=== PATIENT | male | born 1985 | race Two or more races ===

== ENCOUNTER 2024-01-17 04:35 | Emergency (ER) | payer MEDICAID, SELFPAY ==
[2024-01-17 04:43] VITALS: BP 131/86; PULSE 89; RESP 18; TEMP 36.9; O2SAT 99
[2024-01-17 05:07] VITALS: BMI 34.4
--- NOTE | 2024-01-17 05:14 | PC.NURSE ---
Dr. Brush at the bedside evaluating patient.
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
--- NOTE | 2024-01-17 05:33 | XR_ITS ---
Examination: AP chest single view Technique: AP portable upright chest single view Exam date and time: January 17, 2024 0535 hrs. Comparison December 04, 2009 Indications: Shortness of breath today. Findings: Normal heart size No pneumonia or pulmonary edema The osseous structures are intact Impression: No pneumonia or pulmonary edema
[2024-01-17 06:10] LABS: Lactate (Lactic Acid) 0.8 mMol/L (0.4-2.0)
[2024-01-17] MEDS: CEFEPIME INJ 2 GM in SODIUM CHLORIDE 0.9% (P) 50 ML IV (06:12)
[2024-01-17 06:27] LABS: Basophils % (Auto) 0 % (0-2.5); Eosinophils % (Auto) 0 % (0-10); Hematocrit 34.7 % (41.0-53.0); Hemoglobin 11.9 g/dL (13.5-16.0); Immature Granulocytes % (Auto) 0 % (0-0); Immature Granulocytes Auto 0.04 Thou/mm3 (0.00-0.00); Lymphocytes # (Auto) 1.1 Thou/mm3 (1.0-4.8); Lymphocytes % (Auto) 12 % (10-50); Mean Corpuscular HGB Conc 34.3 g/dl (31.0-37.0); Mean Corpuscular Hemoglobin 29.8 pg (25.0-35.0); Mean Corpuscular Volume 87 fL (80-100); Monocytes # (Auto) 0.8 Thou/mm3 (0.0-0.8); Monocytes % (Auto) 9 % (0-12); Neutrophils # (Auto) 7.1 Thou/mm3 (1.8-7.7); Neutrophils % (Auto) 78 % (37-80); Nucleated Red Blood Cell % 0 /100 WBC (0); Platelet Count 361 Thou/mm3 (140-440); RDW Standard Deviation 41.4 fL (35.1-43.9); Red Blood Count 3.99 Miln/mm3 (4.50-5.90); White Blood Count 9.1 Thou/mm3 (3.8-10.6)
[2024-01-17] MEDS: Vancomycin Inj 2,000 MG in SODIUM CHLORIDE 0.9% 500 ML 500 ML 150 MG IV (06:45)
[2024-01-17 06:48] VITALS: BP 140/88; PULSE 101; RESP 18; O2SAT 99
[2024-01-17 06:54] LABS: Anion Gap 7 (7-16); BUN/Creatinine Ratio 15 Ratio (12-20); Bilirubin,Total 0.6 mg/dL (0.3-1.2); Blood Urea Nitrogen 15 mg/dL (9-23); Chloride 106 mMol/L (98-107); Estimated Creatinine Clearance 127.5 mL/min (>60); Glucose 112 mg/dL (74-106); Magnesium 2.3 mg/dL (1.6-2.6); Osmolality,Calculated 277 (275-295); Potassium 3.6 mMol/L (3.4-5.1); Sodium 138 mMol/L (136-145); eGFR > 60 See Note
[2024-01-17 06:55] LABS: Alanine Aminotransferase 26 U/L (10-49); Albumin, Serum 4.3 gm/dL (3.5-5.0); Albumin/Globulin Ratio 1.6 (1.2-2.2); Alcohol, Blood Medical < 3.0 mg/dL (0-10.0); Alkaline Phosphatase 81 U/L (46-116); Aspartate Amino Transferase 20 U/L (0-34); C-Reactive Protein 1.4 mg/dL (0.0-0.9); Globulin 2.7 gm/dL (2.3-3.5); Procalcitonin 0.22 ng/ml (0.0-0.49)
[2024-01-17 07:07] LABS: Sed Rate (ESR) 20 mm/hr (0-15)
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
[2024-01-17 08:14] VITALS: BP 123/86; PULSE 104; RESP 16; O2SAT 95
--- NOTE | 2024-01-17 08:26 | PC.NURSE ---
PATIENT PROVIDED URINE, NO COMPLAINTS OF PAIN AT TIME OF ASSESSMENT. PATIENT TRANSPORTED TO CT. PPD REMAINS WITH PATIENT.
[2024-01-17 08:48] LABS: Collection Type, Urine Clean Catch
[2024-01-17 09:08] LABS: Amphetamine/Methamp Scrn,U Positive (Negative); Barbiturate Screen,Urine Negative (Negative); Benzodiazepines Screen,Urine Negative (Negative); Benzoylecgonine Screen, Ur Negative (Negative); Fentanyl Screen,Urine Negative (Negative); Opiate Screen,Urine Negative (Negative); THC Screen,Urine Negative (Negative)
[2024-01-17 09:19] LABS: Bilirubin,Urine Negative (Negative); Blood,Urine Negative (Negative); Clarity,Urine Clear (Clear/Hazy); Color,Urine Lt-Yellow (Lt Yel-Yel); Glucose, Urine Negative (Negative); Ketones,Urine Negative (Negative); Leukocyte Esterase,Urine Negative (Negative); Nitrite,Urine Negative (Negative); Protein,Urine Negative (Neg - Trace); RBC,Urine 2 /hpf (0-3); Specific Gravity,Urine 1.022 (1.001-1.035); Squamous Epithelial Cell,Urine < 1 /hpf (0-5); Urobilinogen,Urine Negative mg/dL (0.0-1.0); WBC,Urine 1 /hpf (0-5)
[2024-01-17 10:35] VITALS: BP 143/89; PULSE 103; RESP 16; O2SAT 98
[2024-01-17 11:17] VITALS: BP 143/89; PULSE 108; RESP 16; O2SAT 98
== END 2024-01-17 10:45 ==
PROVIDERS: Emergency Medicine; Emergency Provider Emergency Medicine; PCP Family Medicine
DX: Z02.89 Encounter for other administrative examinations (principal); S71.112A Laceration without foreign body, left thigh, initial encounter; R06.02 Shortness of breath; X58.XXXA Exposure to other specified factors, initial encounter
CPT/HCPCS: 36415; 71045; 73701; 80053; 80307; 80320; 81001; 83605; 83735; 84145; 85025; 85652; 86140; 87040; 96365; 96366; 96367; 99285; A4649; J0692; J3371; J7040; J7050; Q9967; G0480; J3370

== ENCOUNTER 2025-01-11 19:01 | Emergency (ER) | payer MEDICAID, SELFPAY ==
[2025-01-11 19:21] VITALS: BP 124/77; PULSE 112; RESP 20; TEMP 37.1; O2SAT 98
--- NOTE | 2025-01-11 19:26 | XR_ITS ---
Examination: Duplex scan of the lower extremity, unilateral right Date and time of exam: January 11, 2025, 195 hours INDICATIONS: Right leg redness swelling and pain beginning 2 days ago Technique: Duplex scan of the extremity veins using B-mode/grayscale imaging and Doppler spectral analysis and color flow Attention is directed to internal echogenicity, compression and augmentation involving these veins, color flow assessment, spectral analysis Findings: Major deep venous structures in the extremity demonstrate normal course and caliber. There is no evidence of deep vein thrombosis. Normal color flow and spectral analysis Impression: Negative for DVT Multiple right groin lymph nodes, the largest 4.5 cm, clinical correlation advised.
--- NOTE | 2025-01-11 19:27 | PD.EDRME ---
Rapid Medical Screening Exam RME Arrival date/time: 01/11/25 19:01 39M with history of R hip replacement presents to ED with several days of RLE redness, swelling, and pain. Chief Complaint: General Adult/Misc Complain Vital signs: Vital Signs Temperature 98.8 F 01/11/25 19:21 Pulse Rate 112 H 01/11/25 19:21 Respiratory Rate 20 01/11/25 19:21 Blood Pressure 124/77 01/11/25 19:21 Pulse Oximetry (%) 98 01/11/25 19:21 Oxygen Delivery Method Room Air 01/11/25 19:21 Exam: R lower leg redness, swelling, and tenderness (per patient). Some swelling and redness also on R upper thigh area. Clinical Impression: cellulitis vs DVT vs skin abscess vs PVD/PAD
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
[2025-01-11] MEDS: IBUPROFEN TAB 400 MG TABLET 800 MG PO (19:58)
[2025-01-11 20:02] LABS: Lactate (Lactic Acid) 1.6 mMol/L (0.4-2.0)
[2025-01-11 20:03] LABS: Basophils # (Auto) 0.0 Thou/mm3 (0.0-0.2); Basophils % (Auto) 0 % (0-2.5); Eosinophils # (Auto) 0.0 Thou/mm3 (0.0-0.5); Eosinophils % (Auto) 0 % (0-10); Hematocrit 44.0 % (41.0-53.0); Hemoglobin 14.6 g/dL (13.5-16.0); Immature Granulocytes Auto 0.04 Thou/mm3 (0.00-0.00); Lymphocytes # (Auto) 1.1 Thou/mm3 (1.0-4.8); Lymphocytes % (Auto) 12 % (10-50); Mean Corpuscular HGB Conc 33.2 g/dl (31.0-37.0); Mean Corpuscular Hemoglobin 28.6 pg (25.0-35.0); Mean Corpuscular Volume 86 fL (80-100); Monocytes # (Auto) 0.7 Thou/mm3 (0.0-0.8); Monocytes % (Auto) 7 % (0-12); Neutrophils # (Auto) 7.2 Thou/mm3 (1.8-7.7); Neutrophils % (Auto) 80 % (37-80); Nucleated Red Blood Cell # 0.00 Thou/mm3 (0.00-0.00); Nucleated Red Blood Cell % 0 /100 WBC (0); Platelet Count 200 Thou/mm3 (140-440); RDW Standard Deviation 39.2 fL (35.1-43.9); Red Blood Count 5.10 Miln/mm3 (4.50-5.90); White Blood Count 9.0 Thou/mm3 (3.8-10.6)
[2025-01-11 20:10] LABS: Sed Rate (ESR) 71 mm/hr (0-15)
[2025-01-11 20:30] LABS: Alanine Aminotransferase 131 U/L (10-49); Albumin, Serum 4.8 gm/dL (3.5-5.0); Albumin/Globulin Ratio 1.7 (1.2-2.2); Alkaline Phosphatase 77 U/L (46-116); Anion Gap 9 (7-16); Aspartate Amino Transferase 56 U/L (0-34); BUN/Creatinine Ratio 11 Ratio (12-20); Bilirubin,Total 0.5 mg/dL (0.3-1.2); Blood Urea Nitrogen 14 mg/dL (9-23); Calcium 9.3 mg/dL (8.3-10.6); Calcium (Corrected) 9.3 mg/dL (8.5-10.1); Carbon Dioxide 29.3 mMol/L (20.0-31.0); Chloride 100 mMol/L (98-107); Creatinine (Component) 1.3 mg/dL (0.6-1.3); Globulin 2.9 gm/dL (2.3-3.5); Glucose 97 mg/dL (74-106); Osmolality,Calculated 276 (275-295); Potassium 3.8 mMol/L (3.4-5.1); Procalcitonin 4.93 ng/ml (0.0-0.49); Sodium 138 mMol/L (136-145); Total Protein 7.7 gm/dL (5.7-8.2); eGFR > 60 See Note
[2025-01-11 20:37] LABS: C-Reactive Protein 18.7 mg/dL (0.0-0.9)
== END 2025-01-11 21:00 | disposition left against medical advice (07) ==
LOC: SERX 20:15
PROVIDERS: Physician Assistant; Emergency Provider Emergency Medicine
DX: L03.113 Cellulitis of right upper limb (principal)
CPT/HCPCS: 36415; 80053; 83605; 84145; 85025; 85652; 86140; 93971; 96372; 99283; J0696; J3490; A9270

== ENCOUNTER 2025-01-16 13:17 | Emergency (ER) | payer MEDICAID, SELFPAY ==
[2025-01-16 13:35] VITALS: BP 128/83; PULSE 100; RESP 18; TEMP 36.6; O2SAT 98; BMI 32.1
--- NOTE | 2025-01-16 13:36 | XR_ITS ---
EXAMINATION: XR foot comp RT min 3V ORDERING PROVIDER: SARITA Hollis HISTORY: r/o osteo TECHNIQUE: 3 radiographs of the right foot were obtained. COMPARISON: None. FINDINGS: Significant soft tissue swelling involving the ankle and foot. No subcutaneous edema. Hammertoe deformities of the second through fourth toes. No destructive bony process identified. No acute fracture or dislocation. Mild degenerative changes. No radiopaque foreign object. IMPRESSION: Significant soft tissue swelling without acute bony findings. If further concern for osteomyelitis recommend bone scan versus MRI.
--- NOTE | 2025-01-16 13:36 | XR_ITS ---
EXAMINATION: XR tibia fibula RT 2V ORDERING PROVIDER: SARITA Hollis HISTORY: r/o osteo TECHNIQUE: 4 radiographs of the right tib-fib. COMPARISON: None. FINDINGS: Significant soft tissue swelling. No acute fracture or dislocation. No destructive bony lesion. 3 metallic subcentimeter round densities project over the medial portion of the knee. IMPRESSION: Soft tissue swelling without acute bony findings. If further clinical concern for radiographically occult osteomyelitis consider bone scan versus MRI. 3 metallic rounded densities projecting over the medial knee. These could be internal or external to the patient. Recommend correlation with history and physical exam.
--- NOTE | 2025-01-16 13:38 | EDRME_ITS ---
Rapid Medical Screening Exam RME Arrival date/time: 01/16/25 13:17 39-year-old male with no known medical history presents to the emergency room with a chief complaint of right lower extremity swelling, erythema, tenderness x 5 days I have greeted and performed a focused initial assessment of this patient. A com prehensive ED assessment and evaluation of the patient, analysis of all test results, and completion of the medical decision making process will be conducted by additional ED providers. Chief Complaint: Extremity Injury, Lower Time Seen by Provider: 01/16/25 13:19 Vital signs: Vital Signs Temperature 98 F 01/16/25 13:35 Pulse Rate 100 01/16/25 13:35 Respiratory Rate 18 01/16/25 13:35 Blood Pressure 128/83 01/16/25 13:35 Pulse Oximetry (%) 98 01/16/25 13:35 Oxygen Delivery Method Room Air 01/16/25 13:35 Vital signs reviewed by provider: Yes Exam: Right below the knee swelling, erythema, tenderness. The patient has +2 pitting edema Patient has clear bilateral lung sounds. Strong and regular rhythm no chest pain Clinical Impression: Cellulitis versus diabetic foot ulcer versus osteomyelitis
[2025-01-16 14:06] LABS: Lactate (Lactic Acid) 0.9 mMol/L (0.4-2.0)
[2025-01-16 14:08] LABS: Basophils # (Auto) 0.1 Thou/mm3 (0.0-0.2); Basophils % (Auto) 1 % (0-2.5); Eosinophils # (Auto) 0.1 Thou/mm3 (0.0-0.5); Eosinophils % (Auto) 1 % (0-10); Hematocrit 38.6 % (41.0-53.0); Hemoglobin 12.9 g/dL (13.5-16.0); Immature Granulocytes Auto 0.14 Thou/mm3 (0.00-0.00); Lymphocytes # (Auto) 1.9 Thou/mm3 (1.0-4.8); Lymphocytes % (Auto) 24 % (10-50); Mean Corpuscular HGB Conc 33.4 g/dl (31.0-37.0); Mean Corpuscular Hemoglobin 29.1 pg (25.0-35.0); Mean Corpuscular Volume 87 fL (80-100); Monocytes # (Auto) 0.8 Thou/mm3 (0.0-0.8); Monocytes % (Auto) 10 % (0-12); Neutrophils # (Auto) 4.8 Thou/mm3 (1.8-7.7); Neutrophils % (Auto) 62 % (37-80); Nucleated Red Blood Cell # 0.00 Thou/mm3 (0.00-0.00); Nucleated Red Blood Cell % 0 /100 WBC (0); Platelet Count 338 Thou/mm3 (140-440); RDW Standard Deviation 39.6 fL (35.1-43.9); Red Blood Count 4.44 Miln/mm3 (4.50-5.90); White Blood Count 7.7 Thou/mm3 (3.8-10.6)
[2025-01-16 14:27] LABS: B-Type Natriuretic Peptide < 20 pg/mL (0-100)
[2025-01-16 14:28] LABS: Sed Rate (ESR) 54 mm/hr (0-15)
[2025-01-16 14:30] LABS: Alanine Aminotransferase 58 U/L (10-49); Albumin, Serum 4.4 gm/dL (3.5-5.0); Albumin/Globulin Ratio 1.3 (1.2-2.2); Alkaline Phosphatase 81 U/L (46-116); Anion Gap 9 (7-16); Aspartate Amino Transferase 26 U/L (0-34); BUN/Creatinine Ratio 10 Ratio (12-20); Bilirubin,Total 0.4 mg/dL (0.3-1.2); Blood Urea Nitrogen 10 mg/dL (9-23); C-Reactive Protein 9.4 mg/dL (0.0-0.9); Calcium 9.0 mg/dL (8.3-10.6); Calcium (Corrected) 9.0 mg/dL (8.5-10.1); Carbon Dioxide 29.4 mMol/L (20.0-31.0); Chloride 102 mMol/L (98-107); Creatinine (Component) 1.0 mg/dL (0.6-1.3); Estimated Creatinine Clearance 121.9 mL/min (>60); Globulin 3.4 gm/dL (2.3-3.5); Glucose 102 mg/dL (74-106); Osmolality,Calculated 278 (275-295); Potassium 3.6 mMol/L (3.4-5.1); Sodium 140 mMol/L (136-145); Total Protein 7.8 gm/dL (5.7-8.2); Troponin I < 0.002 ng/mL (0.0-0.045); eGFR > 60 See Note
[2025-01-16 14:36] LABS: Procalcitonin 0.36 ng/ml (0.0-0.49)
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
--- NOTE | 2025-01-16 16:27 | XR_ITS ---
Examination: Duplex scan of the lower extremity, unilateral right Date and time of exam: January 16, 2025, 1641 hours INDICATIONS: Right leg swelling and redness beginning 6 days ago Technique: Duplex scan of the extremity veins using B-mode/grayscale imaging and Doppler spectral analysis and color flow Attention is directed to internal echogenicity, compression and augmentation involving these veins, color flow assessment, spectral analysis Findings: Major deep venous structures in the extremity demonstrate normal course and caliber. There is no evidence of deep vein thrombosis. Normal color flow and spectral analysis Impression: Negative for DVT..
--- NOTE | 2025-01-16 17:23 | PC.NURSE ---
pt not in assigned room, called inside and outside ED lobby, no response at this time
--- NOTE | 2025-01-16 17:38 | PC.NURSE ---
pt not in assigned room, pt called inside and outside ED lobby; no response at this time
--- NOTE | 2025-01-16 17:55 | PC.NURSE ---
nax3 at this time.
--- NOTE | 2025-01-16 17:58 | PC.NURSE ---
attempt to call pt and unable to contacted.
--- NOTE | 2025-01-16 18:12 | EVENTNT_ITS ---
<Statement entered by Sanjay Sanchez MD - 01/16/25 18:14> ED called for admission, for Mr. Grant who is 39 year old male with past medical Hx significant for substance use disorder pressented to the ED due to right lower extremity edema and erythema. Pt left without being seeing by the hospitalist team. Dr. Sanchez (PGY-2)- Internal medicine resident Documentation for date of: 01/16/25
--- NOTE | 2025-01-16 18:12 | PD.RESEVENT ---
Documentation for date of: 01/16/25
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
== END 2025-01-16 18:08 | disposition left against medical advice (07) ==
PROVIDERS: Nurse Practitioner Family; Emergency Provider Emergency Medicine; PCP Family Medicine
DX: L03.115 Cellulitis of right lower limb (principal); Z53.29 Procedure and treatment not carried out because of patient's decision for other reasons
CPT/HCPCS: 36415; 73590; 73630; 80053; 81001; 83605; 83880; 84145; 84484; 85025; 85652; 86140; 87040; 87086; 93971; 99283

== ENCOUNTER 2025-01-16 18:49 | Emergency (ER) | payer MEDICAID, SELFPAY ==
[2025-01-16 19:11] VITALS: BP 148/90; PULSE 104; RESP 18; TEMP 36.6; O2SAT 97
[2025-01-16 19:21] VITALS: BMI 32.1
--- NOTE | 2025-01-16 19:22 | PD.EDRME ---
Rapid Medical Screening Exam RME Arrival date/time: 01/16/25 18:49 39-year-old male with a history of substance abuse was seen earlier for right lower leg cellulitis patient AMA but is returning for admission Chief Complaint: General Adult/Misc Complain Time Seen by Provider: 01/16/25 18:55 Vital signs: Vital Signs Temperature 98 F 01/16/25 19:11 Pulse Rate 104 H 01/16/25 19:11 Respiratory Rate 18 01/16/25 19:11 Blood Pressure 148/90 H 01/16/25 19:11 Pulse Oximetry (%) 97 01/16/25 19:11 Oxygen Delivery Method Room Air 01/16/25 19:11 Exam: ? Clinical Impression: ?
--- NOTE | 2025-01-16 21:25 | EDNOTE_ITS ---
ED General RME/HPI General Chief complaint: General Adult/Misc Complain Stated complaint: RETURNED TO BE ADMITTED FOR RLE REDNESS/SWELLING Time Seen by Provider: 01/16/25 18:55 Arrival date/time: 01/16/25 18:49 CC: Right lower leg redness and tenderness. H patient noticed this approximately 6 days ago, but states when he had the flu , he was out of it for 3 days and woke up with a swollen like this patient admits to methamphetamine use, alcohol, and cigarettes. Patient was initially in admitted to the hospital by the day doctor today, but then left AGAINST MEDICAL ADVICE. Patient freely admits that was to get a fix . Patient says localized pain is 2-3 on a 10 scale nonradiating patient is awake alert oriented nontoxic- appearing afebrile not in any acute distress. Patient denies injecting drugs into that leg RME / HPI RME / HPI narrative: 01/16/25 18:49 39-year-old male with a history of substance abuse was seen earlier for right lower leg cellulitis patient AMA but is returning for admission Exam: ? Impression: ? Related Data Previous Rx's ?Medication ?Instructions ?Recorded clindamycin HCl 300 mg capsule 300 mg PO Q6H #20 caps 01/17/24 sulfamethoxazole 800 1 tab PO BID 7 days #14 tabs 01/16/25 mg-trimethoprim 160 mg tablet (Bactrim DS) Allergies Allergy/AdvReac Type Severity Reaction Status Date / Time No Known Allergies Allergy Verified 01/16/25 18:51 Review of Systems Review of Systems Narrative Review of Systems: GEN: No fever, no chills, no weight loss EYES: No discharge, no visual changes, no pain HEENT: No ear pain, no congestion, no sore throat PULM: No shortness of breath, no cough, no congestion CV: No chest pain, no dyspnea on exertion, no palpitations GI: No nausea, no vomiting, no diarrhea, no pain, no constipation : No frequency, no urgency, no dysuria MUSC/SKEL: No joint pain, no back pain SKIN: Right lower leg redness, no rash PSYCH: No hallucinations, no depression HEME/LYMPH: No easy bleeding or bruising tendencies NEURO: No weakness, no headache Past Medical History Past Medical History NEUROLOGIC: Positive Seizures CARDIAC: Negative Cardiac Disorders or Congestive Heart Failure RESPIRATORY: Negative Chronic Obstructive Pulmonary Disease (COPD) or Asthma GENITOURINARY: Negative Renal Disease ENDOCRINE: Negative Diabetes Mellitus Type 1 or Diabetes Mellitus Type 2 HEMATOLOGIC: Negative Sickle Cell Disease Social History SMOKING STATUS: Current every day smoker ED Exam Narrative Physical exam: [General: Obese not in any acute distress Head normocephalic HEENT: Within acceptable limits Neck is supple nontender Chest equal chest rise nontender to palpation Respiratory: Clear to auscultation no wheezes crackles or rubs CV: Rate rhythm is regular no murmurs rubs or clicks Abdomen is distended secondary to body habitus soft nontender no masses positive bowel sounds all 4 quadrants Back: No CVA tenderness no spinous process tenderness from cervical spine thoracic and lumbar spine Skin: Circumferential erythema to the right lower extremity starting at the ankle that extends up three quarters the way up the lower leg, but does not involve the knee. Small open lesion on the anterior surface along the tibial spine midshaft. No streaking or tenderness in the upper leg posterior fossa of the knee. Otherwise skin is intact no petechiae rash induration ulceration or crepitus Extremities: Edema to the dorsum of the right foot. Moving all extremities against resistance cap refill less than 2 seconds neurosensory intact Neuro: Awake alert oriented x3 Glascow coma 15 no focal deficits] Course Course Course Narrative: Patient admits that he will needing a fix, he had also admits that he if he were admitted he probably would leave AGAINST MEDICAL ADVICE for drugs. At this time I page of the patient option of being admitted, and/or p.o. medications for the next 5 days and then return for reassessment. The patient is elected to do the discharge with p.o. meds. Family member at bedside is encouraged him to take the medications with regularity. I feel this is a practical approach to the patient's street drug needs. At the time the patient returns if it is worsening the patient can be admitted for further workup secondary to outpatient failure. Quality Measures none Orders Category Date Time Status cefTRIAXone [Rocephin] 1,000 mg Med 01/16/25 21:30 Discontinued Lidocaine 1% Pf 5 ml [Xylocaine 1% Pf 5 ml] 2.1 ml IM X1 Vital Signs Vital signs: Vital Signs Temperature 98 F 01/16/25 19:11 Pulse Rate 104 H 01/16/25 19:11 Respiratory Rate 18 01/16/25 19:11 Blood Pressure 148/90 H 01/16/25 19:11 Pulse Oximetry (%) 97 01/16/25 19:11 Oxygen Delivery Method Room Air 01/16/25 19:11 Discharge Plan Plan Patient Disposition: HOME (Self Care) Discharge Disposition comment: Pt to dc home and cont oral abt will return to care in 5 days if Patient condition on transfer: Stable Prescriptions/Referrals Prescriptions/Med Rec: New sulfamethoxazole-trimethoprim [Bactrim DS] 800-160 mg tablet 1 tab PO BID 7 Days Qty: 14 0RF No Action clindamycin HCl 300 mg capsule 300 mg PO Q6H Qty: 20 0RF Referrals: Pedro Castillo MD [Physician, Family Practice] - In 1 week No Primary/Family,Physician [Primary Care Provider] - In 1 week Problem List Clinical Impression: Cellulitis of right leg Patient/Caregiver Discharge Instructions Education Materials: Discharge Instructions for Cellulitis Additional Instructions: Take the medications 1 in the morning once in the evening for the next 5 days and then return for reassessment. Take a picture of the leg in the same time of the day 1 to the same light, each day. Outlined the redness with a marker, and see if it expands or contracts while taking the antibiotics. At any time if you experience a high fever return immediately to the emergency room for reevaluation. Print Language: Kyrgyz Stand Alone Forms: Michell Award Info., Patient Portal Info Letter PA/FEEDER OPERATOR AUTOMATIC Supervising Physician PA/FEEDER OPERATOR [employer]OMAT[employer] Supervising Physician: Hermann Munoz ENP [facility] Clinical Information Provided by: patient Medical Records reviewed [facility] Meds/Rx considered, not ordered None Labs/Rad/Tests considered, not ordered None Medication Administration(s) Medication Administration History Discontinued Medications Ceftriaxone Sodium 1,000 mg/ (Lidocaine HCl 2.1 ml) 0 mg IM X1 ONE Stop: 01/16/25 21:31 Last Admin: 01/16/25 21:49 Dose: 1,000 mg Documented By: FARA
[2025-01-16 22:41] VITALS: BP 132/72; PULSE 66; RESP 18; TEMP 36.6; O2SAT 99
== END 2025-01-16 22:44 | disposition home or self-care (01) ==
PROVIDERS: Emergency Provider Emergency Medicine
DX: L03.115 Cellulitis of right lower limb (principal)
CPT/HCPCS: 96372; 99282; J0696; J3490